=== PATIENT | male | born 1950 | race Caucasian/White ===

== ENCOUNTER 2022-05-17 12:18 | Observation (INO) ==
[2022-05-17] MEDS ORDERED: SODIUM CHLORIDE 0.9% 1,000 ML IV STA (14:20)
[2022-05-17 14:28] LABS: Bacteria,Urine Occasional /HPF (Few); Bilirubin,Urine Negative (Negative); Blood, Urine Negative (Negative); Glucose,Urine (UA) Negative (Negative); Hyaline Casts,Urine 1 /LPF (0-3); Ketones,Urine Negative (Negative); Mucus,Urine Occasional /LPF (Occasional); Nitrite,Urine Negative (Negative); Protein,Urine Negative (Negative); RBC,Urine 2 /HPF (0-4); Squamous Epithelial Cell,Urine Occasional /HPF (0-10); Urine Appearance Clear (Clear); Urine Color Yellow (Yellow); Urine Specific Gravity 1.015 (1.001-1.035); Urine Urobilinogen 0.2 eU/dL (<2.0); Urine pH 5.5 (4.5-8.0)
[2022-05-17 14:29] LABS: Basophils # 0.1 10*3/uL (0.0-0.2); Basophils % 0.8 % (0.0-0.8); Eosinophils # 0.1 10*3/uL (0.0-0.87); Eosinophils % 0.7 % (0.00-10.9); Hematocrit 31.1 VOL% (42.0-52.0); Immature Granulocytes % 0.4 %; Immature Granulocytes Absolute 0.03 #; Lymphocytes # 0.9 10*3/uL (1.4-4.0); Lymphocytes % 11.8 % (21.2-54.2); Mean Corpuscular HGB Conc 32.2 GM/DL (32-36); Mean Corpuscular Volume 91.2 FL (87-102); Mean Platelet Volume 9.7 FL (9.6-12.0); Monocytes # 0.5 10*3/uL (0.11-0.8); Monocytes % 6.3 % (1.7-12.7); Platelet Count 218 T/CUMM (130-400); Red Blood Count 3.41 MC/CUMM (3.8-5.5); Red Cell Distribution Width 12.5 % (9.3-17.3); White Blood Count 7.7 T/CUMM (4-12)
[2022-05-17 14:51] LABS: Alanine Aminotransferase 18 U/L (16-61); Albumin 3.8 G/DL (3.4-5.0); Alkaline Phosphatase 88 U/L (45-117); Aspartate Amino Transferase 19 U/L (0-37); Bilirubin,Total < 0.39 MG/DL (0.20-1.00); Blood Urea Nitrogen 46 MG/DL (7-18); Calcium 9.4 MG/DL (8.5-10.1); Carbon Dioxide 18 MMOL/L (21-32); Chloride 114 MMOL/L (98-107); Glucose 157 MG/DL (74-106); Osmolality,Calculated 289.7 MOS/KG (273-304); Potassium 4.6 MMOL/L (3.5-5.1); Sodium 138 MMOL/L (136-145); Total Protein 7.7 G/DL (6.4-8.2)
[2022-05-17] MEDS ORDERED: hydrALAZINE 20 MG/1 ML VIAL IV PRN (17:48)
[2022-05-17] MEDS ORDERED: DEXTROSE 50% 25 GM/50 ML VIAL IV PRN (17:48)
[2022-05-17] MEDS ORDERED: DOCUSATE SODIUM 100 MG CAPSULE PO PRN ×2 (17:48→17:52)
[2022-05-17] MEDS ORDERED: GLUCAGON 1 MG VIAL IM PRN (17:48)
[2022-05-17] MEDS ORDERED: ALBUTEROL 2.5 MG/3 ML NEB RESP TX PRN (17:48)
[2022-05-17] MEDS ORDERED: ONDANSETRON 4 MG/2 ML VIAL IV PRN (17:48)
[2022-05-17] MEDS ORDERED: ACETAMINOPHEN 325 MG TABLET PO PRN (17:48)
[2022-05-17] MEDS ORDERED: DEXTROSE 10% 250 ML BAG IV PRN (17:50)
[2022-05-17] MEDS ORDERED: SODIUM CHLORIDE 0.9% 1,000 ML IV SCH (18:00)
[2022-05-17 18:29] LABS: Barbiturates Screen,Urine Negative (Negative); Benzodiazepines Screen,Urine Negative (Negative); Cannabinoid Screen,Urine Positive (Negative); Opiate Screen,Urine Negative (Negative); Phencyclidine Screen,Urine Negative (Negative)
[2022-05-17] MEDS: HEPARIN 5,000 UNIT/1 ML VIAL SUBCUT SCH (20:55)
[2022-05-17] MEDS ORDERED: FOLIC ACID 1 MG TABLET PO SCH (21:00)
[2022-05-17] MEDS ORDERED: SODIUM BICARB INJ 50 MEQ in SODIUM CHLORIDE 0.45% 1,000 ML IV SCH (21:00)
[2022-05-18 05:08] LABS: Basophils # 0.1 10*3/uL (0.0-0.2); Basophils % 0.8 % (0.0-0.8); Eosinophils # 0.2 10*3/uL (0.0-0.87); Eosinophils % 2.7 % (0.00-10.9); Hematocrit 29.5 VOL% (42.0-52.0); Hemoglobin 9.4 GM/DL (14.0-18.0); Immature Granulocytes % 0.3 %; Immature Granulocytes Absolute 0.02 #; Lymphocytes # 1.4 10*3/uL (1.4-4.0); Lymphocytes % 22.8 % (21.2-54.2); Mean Corpuscular HGB Conc 31.9 GM/DL (32-36); Mean Corpuscular Volume 90.5 FL (87-102); Monocytes # 0.6 10*3/uL (0.11-0.8); Neutrophils % 63.4 % (38.7-73.9); Platelet Count 200 T/CUMM (130-400); Red Blood Count 3.26 MC/CUMM (3.8-5.5); Red Cell Distribution Width 12.3 % (9.3-17.3); White Blood Count 5.9 T/CUMM (4-12)
[2022-05-18 05:25] LABS: Calcium 8.9 MG/DL (8.5-10.1); Osmolality,Calculated 285.5 MOS/KG (273-304); Potassium 4.3 MMOL/L (3.5-5.1)
[2022-05-18 05:33] LABS: Folate > 24.00 NG/ML (5.38-24.0); Vitamin B12 322 PG/ML (211-911)
[2022-05-18 05:41] LABS: Ferritin 168.1 ng/mL (26-388)
[2022-05-18 05:41] LABS: Albumin 3.3 G/DL (3.4-5.0); Bilirubin,Total 0.4 MG/DL (0.20-1.00); Calcium 9.2 MG/DL (8.5-10.1); Osmolality,Calculated 283.7 MOS/KG (273-304); Potassium 4.4 MMOL/L (3.5-5.1); Risk Ratio 2.02; Thyroid Stimulating Hormone 4.26 uIU/ml (0.358-3.74); Total Protein 7.1 G/DL (6.4-8.2)
[2022-05-18 06:22] LABS: Sedimentation Rate-Westergren 67 MM/HR (0-20)
[2022-05-18 08:32] LABS: Hemoglobin A1 (Alkaline) 97.9 % (96.5-98.5); Hemoglobin A2 (Alkaline) 2.1 % (1.5-3.5)
[2022-05-18] MEDS: HEPARIN 5,000 UNIT/1 ML VIAL SUBCUT SCH (08:52)
[2022-05-18] MEDS ORDERED: THIAMINE 100 MG TABLET PO SCH (09:00)
[2022-05-18] MEDS ORDERED: PANTOPRAZOLE 40 MG TABLET PO SCH (09:00)
[2022-05-18 16:40] VITALS: BP 152/65
[2022-05-18] MEDS ORDERED: cefTRIAXone 1,000 MG in SODIUM CHLORIDE 0.9% 100 ML IV SCH (21:00)
[2022-05-18] MEDS ORDERED: SIMVASTATIN 10 MG TABLET PO SCH (21:00)
== END 2022-05-18 18:15 | disposition home or self-care (01) ==
LOC: N.EDINP 12:18 → N.ED 12:18 → N.TELEN 19:12
PROVIDERS: ADMIT Hospitalist; ATTEND Hospitalist